=== PATIENT | female | born 1985 | race Caucasian/White ===

== ENCOUNTER 2019-03-10 14:53 | Emergency (ER) | payer BC, OTHER ==
[~2019-03-10] VITALS: Ht 170.2 cm; Wt 70.3 kg
--- NOTE | 2019-03-10 15:33 | NUR ---
[facility] at bedside
[2019-03-10] MEDS ORDERED: IBUPROFEN 800 MG TABLET ONE (16:12)
[2019-03-10] MEDS ORDERED: IBUPROFEN 800 MG TABLET PO ONE (16:15)
--- NOTE | 2019-03-10 16:54 | NUR ---
Patient discharged to home in stable conditon. Written and verbal after care instructions given. Patient verbalizes understanding of instructions.
== END 2019-03-10 16:55 | disposition home or self-care (01) ==
LOC: ER 14:53
DX: M25.532 Pain in left wrist (principal); J45.909 Unspecified asthma, uncomplicated; F17.200 Nicotine dependence, unspecified, uncomplicated; V89.2XXA Person injured in unspecified motor-vehicle accident, traffic, initial encounter; Y93.89 Activity, other specified; Y92.89 Other specified places as the place of occurrence of the external cause; Y99.8 Other external cause status
CPT/HCPCS: 73130; A4663